=== PATIENT | female | born 2000 | race Caucasian/White ===

== ENCOUNTER 2019-05-02 11:58 | Outpatient (CLI) | payer OTHER | END 2019-05-02 15:41 | disposition home or self-care (01) | LOC: SONOGRAMA 11:58 | DX: R10.2 Pelvic and perineal pain (principal) ==

== ENCOUNTER → 2021-10-19 | Outpatient (CLI) | payer OTHER | END | disposition home or self-care (01) | LOC: PPH VACUNA 07:00 | PROVIDERS: ATTEND Emergency Medicine Pediatric Emergency Medicine | DX: Z23 Encounter for immunization (principal) ==

== ENCOUNTER 2024-06-03 13:40 | Outpatient (CLI) | payer OTHER | END 2024-06-03 14:07 | disposition home or self-care (01) | LOC: SONOGRAMA 13:40 | DX: N83.299 Other ovarian cyst, unspecified side (principal); N94.6 Dysmenorrhea, unspecified ==

== ENCOUNTER 2025-06-26 11:10 | Outpatient (CLI) | payer OTHER | END 2025-06-26 11:16 | disposition home or self-care (01) | LOC: SONOGRAMA 11:10 | DX: N94.6 Dysmenorrhea, unspecified (principal); N83.00 Follicular cyst of ovary, unspecified side ==